=== PATIENT | male | born 1985 | race Caucasian/White ===

== ENCOUNTER 2016-11-01 19:12 | Emergency (ER) | payer OTHER | END 2016-11-01 20:10 | disposition home or self-care (01) | LOC: ER 19:12 | DX: J10.1 Influenza due to other identified influenza virus with other respiratory manifestations (principal); R50.9 Fever, unspecified | CPT/HCPCS: 87400; 99283 ==

== ENCOUNTER 2016-11-18 09:07 | Emergency (ER) | payer OTHER ==
[2016-11-18 10:22] LABS: URINE BILIRUBIN NEGATIVE (NEGATIVE); URINE BLOOD NEGATIVE (NEGATIVE); URINE GLUCOSE (UA) NORMAL (NORMAL); URINE KETONE NEGATIVE (NEGATIVE); URINE LEUKOCYTE ESTERASE TRACE (NEGATIVE); URINE NITRATE NEGATIVE (NEGATIVE); URINE PROTEIN NEGATIVE (NEGATIVE); UROBILINOGEN NORMAL mg/dL (<1.0)
[2016-11-18 10:29] LABS: URINE BACTERIA TRACE (NONE SEEN); URINE WBC 0-5 /[HPF] (0-3)
[2016-11-18 10:30] LABS: URINE MUCUS TRACE
== END 2016-11-18 10:38 | disposition home or self-care (01) ==
LOC: ER 09:07
PROVIDERS: Internal Medicine
DX: R30.0 Dysuria (principal); F17.210 Nicotine dependence, cigarettes, uncomplicated
CPT/HCPCS: 81001; 99283